=== PATIENT | female | born 1965 | race Caucasian/White ===

== ENCOUNTER → 2017-04-13 | Outpatient (CLI) | payer MEDICARE ==
[~2017-04-13] MED LIST: ALBU6.7H INH; AMLO5TAB2 PO; ATOR20TA9 PO; BUDE10.2 INH; FLUO40CA9 PO; Inhaler INH
[2017-04-13 09:25] LABS: HEMATOCRIT 47.7 % (34.6-47.8); WHITE BLOOD COUNT 7.7 x10^3/uL (3.4-10)
[2017-04-13 09:35] LABS: BLOOD UREA NITROGEN 15 mg/dL (7-18)
[2017-04-13 09:44] LABS: PATH.CAST-FLAG NOT PRESENT; SPERM-FLAG NOT PRESENT; SRC-FLAG NOT PRESENT; XTAL-FLAG NOT PRESENT; YLC-FLAG NOT PRESENT
== END | disposition home or self-care (01) ==
LOC: STAR 08:17
PROVIDERS: ATTEND Neurological Surgery
DX: Z01.818 Encounter for other preprocedural examination (principal); R94.31 Abnormal electrocardiogram [ECG] [EKG]; J44.9 Chronic obstructive pulmonary disease, unspecified; M48.06 Spinal stenosis, lumbar region; R79.1 Abnormal coagulation profile; F17.200 Nicotine dependence, unspecified, uncomplicated
CPT/HCPCS: 36415; 71020; 80048; 81001; 85025; 85610; 85730; 87086; 93005

== ENCOUNTER 2017-04-19 05:55 | Inpatient (IN) | payer MEDICARE ==
[~2017-04-19] VITALS: Ht 160 cm; Wt 89.8 kg
[2017-04-19] MEDS ORDERED: BUPIVACAINE/PF-EPI 0.25% 1:200K ONE (06:13)
[2017-04-19] MEDS ORDERED: BUPIVACAINE/PF 0.25% ONE ×2 (06:13→06:21)
[2017-04-19] MEDS ORDERED: BACITRACIN OINT 500U/GM, 15 GM ONE (06:13)
[2017-04-19] MEDS ORDERED: BACITRACIN 50,000 UNIT ONE (06:14)
[2017-04-19] MEDS ORDERED: THROMBIN 5,000 UNIT VIAL TP ONE (06:14)
[2017-04-19] MEDS ORDERED: EPINEPHRINE 1 MG/ML, 1ML ONE (06:26)
[2017-04-19] MEDS ORDERED: LIDOCAINE 1%, 2ML ONE (06:38)
[2017-04-19] MEDS ORDERED: LACTATED RINGERS 1,000 ML IV SCH (06:58)
[2017-04-19] MEDS ORDERED: LIDOCAINE 1%, 2ML SQ PRN (07:00)
[2017-04-19] MEDS ORDERED: SULF1TAB24 PO (07:01)
[2017-04-19] MEDS ORDERED: TIOT18CA INH (07:01)
[2017-04-19] MEDS ORDERED: PROPOFOL 10 MG/ML, 20ML ONE ×2 (07:03)
[2017-04-19] MEDS ORDERED: SUCCINYLCHOLINE 20 MG/ML, 10ML ONE ×2 (07:03)
[2017-04-19] MEDS ORDERED: LIDOCAINE-MPF 2% ,5ML ONE (07:03)
[2017-04-19] MEDS ORDERED: HYDROmorphone 1 MG/ML, 1ML ONE ×2 (07:04→11:33)
[2017-04-19] MEDS ORDERED: MIDAZOLAM 1 MG/ML, 2ML ONE (07:04)
[2017-04-19] MEDS ORDERED: ONDANSETRON 2MG/ML, 2ML ONE (07:04)
[2017-04-19] MEDS ORDERED: CEFAZOLIN 1,000 MG ONE (07:26)
[2017-04-19] MEDS ORDERED: ALBUTEROL SULFATE 200 PUFFS/8.5 GR INH ONE (07:26)
[2017-04-19] MEDS ORDERED: DEXAMETHASONE 4 MG/ML, 1ML ONE (07:26)
[2017-04-19] MEDS ORDERED: PHENYLEPHRINE 10 MG/ML ONE (08:29)
[2017-04-19] MEDS ORDERED: ONDANSETRON 2MG/ML, 2ML IVPush PRN ×2 (08:30→10:30)
[2017-04-19] MEDS ORDERED: OXYcodone 5 MG/5 ML ORAL.SOL UDC PO PRN (08:30)
[2017-04-19] MEDS ORDERED: HYDROmorphone 1 MG/ML, 1ML IV PRN (08:30)
[2017-04-19] MEDS ORDERED: PROMETHAZINE 25 MG/ML, 1ML IV PRN (08:30)
[2017-04-19] MEDS ORDERED: FENTANYL PF 100 MCG/2ML IV PRN (08:30)
[2017-04-19] MEDS ORDERED: MIDAZOLAM 1 MG/ML, 2ML IV PRN (08:30)
[2017-04-19] MEDS ORDERED: FENTANYL PF 100 MCG/2ML ONE (09:41)
[2017-04-19] MEDS ORDERED: ALBUTEROL/IPRATROPIUM 2.5MG/0.5MG, 3 ML ONE (10:10)
[2017-04-19] MEDS: MEPERIDINE/PF 25MG/0.5ML IVPush PRN ×2 (10:20→10:30)
[2017-04-19] MEDS ORDERED: MEPERIDINE/PF 25MG/0.5ML ONE (10:20)
[2017-04-19] MEDS ORDERED: PROMETHAZINE 25 MG/ML, 1ML IM PRN (10:30)
[2017-04-19] MEDS ORDERED: SENNA/DOCUSATE TABLET PO PRN (10:30)
[2017-04-19] MEDS ORDERED: MAGNESIUM HYDROXIDE 8%, 30ML UDC PO PRN (10:30)
[2017-04-19] MEDS ORDERED: DIPHENHYDRAMINE 50 MG/ML, 1ML IM PRN (10:30)
[2017-04-19] MEDS ORDERED: LABETALOL 5MG/ML, 20ML IVPush PRN (10:30)
[2017-04-19] MEDS ORDERED: PHARMACY MAY ADJ FOR RENAL FX MC PRN (10:30)
[2017-04-19] MEDS ORDERED: DIPHENHYDRAMINE 50 MG/ML, 1ML IVPush PRN (10:30)
[2017-04-19] MEDS ORDERED: BISACODYL 10 MG SUPP PR PRN (10:30)
[2017-04-19] MEDS ORDERED: ALBUTEROL/IPRATROPIUM 2.5MG/0.5MG, 3 ML NPPB PRN (11:00)
[2017-04-19] MEDS ORDERED: MEPERIDINE/PF 25MG/0.5ML IVPush PRN (11:00)
[2017-04-19] MEDS ORDERED: OXYcodone 5 MG/5 ML ORAL.SOL UDC ONE (11:02)
[2017-04-19 12:11] VITALS: BP 98/62
[2017-04-19] MEDS: IPRATROPIUM 0.5 MG/2.5 ML INHA HHN SCH ×3 (12:30→19:10)
[2017-04-19] MEDS ORDERED: ALBUTEROL SULFATE 2.5 MG/3 ML HHN PRN (12:30)
[2017-04-19] MEDS: MORPHINE SULFATE 4 MG/ML, 1ML IVPush PRN ×2 (13:06→15:20)
[2017-04-19] MEDS: CLINDAMYCIN PMX 600MG/50ML 50 ML IV SCH ×2 (13:18→21:29)
[2017-04-19] MEDS: D5%-0.9% NACL+KCL 20MEQ 1,000 ML IV SCH (13:18)
[2017-04-19] MEDS: OXYcodone/APAP 5/325MG TABLET PO PRN ×2 (17:31→21:29)
[2017-04-19] MEDS: ALBUTEROL/IPRATROPIUM 2.5MG/0.5MG, 3 ML NPPB SCH (19:35)
[2017-04-19] MEDS: SODIUM CHLORIDE FLUSH 10ML SYR IVF SCH (20:22)
[2017-04-19] MEDS: SULFAMETH./TRIMETHOPRIM DS 800MG/160MG TABLET PO SCH (20:22)
[2017-04-19 20:38] VITALS: BP 81/50
[2017-04-19] MEDS ORDERED: ATORVASTATIN 20 MG TABLET PO SCH (21:00)
[2017-04-19] MEDS ORDERED: ALBUTEROL/IPRATROPIUM 2.5MG/0.5MG, 3 ML NPPB SCH (21:00)
[2017-04-19] MEDS: METHOCARBAMOL 750 MG TABLET PO PRN (21:29)
[2017-04-20] MEDS: OXYcodone/APAP 5/325MG TABLET PO PRN (01:35)
[2017-04-20] MEDS: ALBUTEROL/IPRATROPIUM 2.5MG/0.5MG, 3 ML NPPB SCH ×3 (01:36→14:42)
[2017-04-20 03:08] VITALS: BP 86/52
[2017-04-20] MEDS: D5%-0.9% NACL+KCL 20MEQ 1,000 ML IV SCH ×2 (04:36→13:51)
[2017-04-20] MEDS: CLINDAMYCIN PMX 600MG/50ML 50 ML IV SCH (05:15)
[2017-04-20] MEDS: METHOCARBAMOL 750 MG TABLET PO PRN ×2 (05:15→14:08)
[2017-04-20] MEDS: HYDROcodone/APAP 5/325 TABLET PO PRN ×3 (05:15→14:06)
[2017-04-20 05:17] VITALS: BP 91/60
[2017-04-20 05:17] LABS: HEMATOCRIT 37.7 % (34.6-47.8); HEMOGLOBIN 12.5 g/dL (11.7-16.4); WHITE BLOOD COUNT 12.3 x10^3/uL (3.4-10)
[2017-04-20 08:01] VITALS: BP 97/64
[2017-04-20] MEDS ORDERED: AMLODIPINE 5 MG TABLET PO SCH (09:00)
[2017-04-20] MEDS ORDERED: FLUOXETINE 20 MG CAPSULE PO SCH (09:00)
[2017-04-20] MEDS ORDERED: FLUTICASONE/VILANTEROL 200-25MCG/INH INH SCH (09:00)
[2017-04-20] MEDS: SODIUM CHLORIDE FLUSH 10ML SYR IVF SCH (09:14)
[2017-04-20] MEDS: SULFAMETH./TRIMETHOPRIM DS 800MG/160MG TABLET PO SCH (09:16)
[2017-04-20] MEDS ORDERED: OXYC-302 PO (11:22)
[2017-04-20] MEDS ORDERED: METH750T87 PO (11:23)
[2017-04-20 13:08] VITALS: BP 92/57
[2017-04-20 15:55] VITALS: BP 124/73
[2017-04-21] MEDS ORDERED: ALBUTEROL/IPRATROPIUM 2.5MG/0.5MG, 3 ML NPPB PRN (09:00)
== END 2017-04-20 16:55 | disposition home or self-care (01) | DRG 520 ==
LOC: OUT 05:55 → ORIP 10:02 → 4NOR 12:11 → DCLOUNGE 04-20 16:33
PROVIDERS: ADMIT Neurological Surgery; ATTEND Neurological Surgery
PROC: 01NB0ZZ Release Lumbar Nerve, Open Approach (ICD-10-PCS; 2017-04-19)
PROC: 4A11X4G Monitoring of Peripheral Nervous Electrical Activity, Intraoperative, External Approach (ICD-10-PCS; 2017-04-19)
PROC: 0SB20ZZ Excision of Lumbar Vertebral Disc, Open Approach (ICD-10-PCS; principal; 2017-04-19 07:30)
DX: M47.26 Other spondylosis with radiculopathy, lumbar region (principal); I10 Essential (primary) hypertension; E66.9 Obesity, unspecified; F41.9 Anxiety disorder, unspecified; F32.9 Major depressive disorder, single episode, unspecified; F12.10 Cannabis abuse, uncomplicated; M51.16 Intervertebral disc disorders with radiculopathy, lumbar region; F17.210 Nicotine dependence, cigarettes, uncomplicated; J45.909 Unspecified asthma, uncomplicated; Z82.49 Family history of ischemic heart disease and other diseases of the circulatory system; Z81.8 Family history of other mental and behavioral disorders; Z88.0 Allergy status to penicillin; Z88.8 Allergy status to other drugs, medicaments and biological substances; Z68.35 Body mass index [BMI] 35.0-35.9, adult; Z88.1 Allergy status to other antibiotic agents
CPT/HCPCS: 36415; 72100; 85025; 94640; C1729; J0171; J0690; J1100; J1170; J2175; J2250; J2405; J2704; J3010; J3490; J7620; J0330; J1200; J2370; J3480; J7120

== ENCOUNTER → 2018-05-17 | Outpatient (CLI) | payer MEDICARE ==
[~2018-05-17] MED LIST changes: -AMLO5TAB2 PO; +AMLO5TAB7 PO; +METH750T87 PO; +OXYC-302 PO; +SULF1TAB24 PO; +TIOT18CA INH
== END | disposition home or self-care (01) ==
LOC: CFH 11:10
PROVIDERS: ATTEND Nurse Practitioner
DX: Z12.31 Encounter for screening mammogram for malignant neoplasm of breast (principal)
CPT/HCPCS: 77067

== ENCOUNTER 2020-06-06 21:59 | Emergency (ER) | payer MEDICARE ==
[~2020-06-06] VITALS: Ht 160 cm; Wt 75.4 kg
[~2020-06-06 21:59] MED LIST changes: -ALBU6.7H INH; +ALBU6.7H8 INH; +AMLO-150 PO; -AMLO5TAB7 PO; +ATOR20TA37 PO; -ATOR20TA9 PO
[2020-06-06 22:18] VITALS: BP 151/75
[2020-06-06] MEDS ORDERED: FLUORESCEIN OPHTHALMIC 1 MG STRIP ONE (23:15)
[2020-06-06] MEDS ORDERED: PROPARACAINE OPHTH 0.5%, 15ML ONE (23:15)
== END 2020-06-07 01:19 | disposition home or self-care (01) ==
LOC: ED 06-07 01:00
DX: H54.62 Unqualified visual loss, left eye, normal vision right eye (principal); H43.812 Vitreous degeneration, left eye; R51.9 Headache, unspecified; I10 Essential (primary) hypertension; F17.210 Nicotine dependence, cigarettes, uncomplicated
CPT/HCPCS: 70450; 99284; 99406

== ENCOUNTER 2021-03-25 14:03 | Emergency (ER) | payer MEDICARE ==
[~2021-03-25] VITALS: Ht 157.5 cm; Wt 73.2 kg
[~2021-03-25 14:03] MED LIST changes: -OXYC-302 PO; +OXYC1TAB12 PO; +SULF-23 PO; -SULF1TAB24 PO
[2021-03-25 15:43] LABS: MEAN CORPUSCULAR HEMOGLOBIN 29.1 pg (27.0-34.8); MEAN CORPUSCULAR HGB CONC 33.6 g/dL (32.4-35.8); MEAN PLATELET VOLUME 7.3 fL (7.4-10.4); PLATELET COUNT 411 x10^3/uL (130-400); RED BLOOD COUNT 4.44 x10^6/uL (3.82-5.3); RED CELL DISTRIBUTION WIDTH 14.7 % (9.6-15.2)
[2021-03-25 15:55] LABS: ALBUMIN 2.7 g/dL (3.4-5.0); ANION GAP 6 mmol/L (5-15); CALCIUM 9.6 mg/dL (8.5-10.1); CHLORIDE 96 mmol/L (98-107); CREATININE 1.72 mg/dL (0.55-1.02)
[2021-03-25 16:35] LABS: BAND#(MANUAL) 0.34 x10^3/uL; BANDS%(MANUAL) 3 % (0-7); EOS#(MANUAL) 0.11 x10^3/uL (0.0-0.4); EOS% (MANUAL) 1 % (1-7); LYMPH#(MANUAL) 2.49 x10^3/uL (1-3.4); LYMPHS% (MANUAL) 22 % (22-44); METAMYELOCYTES# (MANUAL) 0.11 x10^3/uL (0-0); METAMYELOCYTES% (MANUAL) 1 % (0-1); MONOS#(MANUAL) 0.79 x10^3/uL (0.3-2.7); MONOS% (MANUAL) 7 % (2-9); SEG#(MANUAL) 7.46 x10^3/uL (1.8-6.8); SEGS% (MANUAL) 66 % (42-75)
[2021-03-25 16:36] LABS: ANISOCYTOSIS 1+
[2021-03-25 16:37] LABS: <PLATELET ESTIMATE> INCREASED; SMALL PLATELETS 1+; TOXIC GRAN 1+
--- NOTE | 2021-03-25 17:40 | NUR ---
motel keeper: Pt ambulatory to room from lobby at this time.
[2021-03-25 18:46] LABS: MICROSCOPIC INDICATED
--- NOTE | 2021-03-25 18:53 | NUR ---
report from Keya HUSSEIN, assuming care of pt at this time.
--- NOTE | 2021-03-25 19:06 | NUR ---
REPORT FROM ALLEN HUSSEIN.
[2021-03-25 19:11] VITALS: BP 118/72
--- NOTE | 2021-03-25 19:34 | NUR ---
STRAIGHT CATH URINE SAMPLE COLLECTED AND SENT.
[2021-03-25 19:48] LABS: MICROSCOPIC INDICATED
== END 2021-03-25 20:00 | disposition home or self-care (01) ==
LOC: ED 19:25
DX: N20.1 Calculus of ureter (principal); E87.6 Hypokalemia; E78.5 Hyperlipidemia, unspecified; I10 Essential (primary) hypertension
CPT/HCPCS: 36415; 74018; 76770; 80048; 81001; 82040; 85025; 87086; 99285